=== PATIENT | female | born 1940 | race Two or more races ===

== ENCOUNTER 2025-09-08 12:17 | Emergency (ER) | payer OTHER ==
[~2025-09-08] VITALS: Ht 154.9 cm; Wt 53.5 kg
[2025-09-08] MEDS ORDERED: VASOTEC20 MG PO (12:29)
[2025-09-08] MEDS ORDERED: CARVEDILOL ER40 MG PO (12:29)
[2025-09-08] MEDS ORDERED: AMLODIPINE BESY10 MG PO (12:29)
[2025-09-08] MEDS ORDERED: LIPITOR40 M1 PO (12:30)
[2025-09-08] MEDS ORDERED: BIOTIN5 MG (12:30)
[2025-09-08] MEDS ORDERED: ALPRAZOLAM0.5 M1 PO (12:30)
[2025-09-08] MEDS ORDERED: ALENDRONATE SOD70 MG PO (12:31)
[2025-09-08] MEDS ORDERED: GRALISE600 MG PO (12:32)
[2025-09-08] MEDS ORDERED: ASA81 MG PO (12:32)
[2025-09-08] MEDS ORDERED: FAMOTIDINE/PF 20 MG in 0.9 % SODIUM CHLORIDE 8 ML IV PUSH STA (14:45)
[2025-09-08] MEDS ORDERED: ONDANSETRON HCL 2 MG/ML VIAL IV ONE (14:45)
[2025-09-08] MEDS ORDERED: PANTOPRAZOLE SODIUM 40 MG/VIAL VIAL IV ONE (15:00)
[2025-09-08 16:11] LABS: BASO % 0.2 % (0.1-1.2); EOS # 0.09 (0.04-0.54); EOS % 0.7 % (0.7-7.0); LYMPH # 1.97 (1.18-3.74); LYMPH % 15.1 % (19.3-53.1); MEAN PLATELET VOLUME 11.00 fl (9.4-12.4); MONO # 0.64 (0.24-0.82); MONO % 4.9 % (4.7-12.5); NEUT # 10.32 (1.56-6.13); NEUT % 78.8 % (34.0-71.1); RED CELL DISTRIBUTION WIDTH 12.3 % (11.6-14.4)
[2025-09-08 16:22] LABS: ERYTHROCYTE SEDIMENTATION RATE 53 mm/hr (0-30)
[2025-09-08 16:44] LABS: ALT/SGPT 15.0 U/L (12-78); AST/SGOT 12.0 U/L (15-37); BILIRUBIN TOTAL 0.79 mg/dL (0.3-1.2); BILIRUBIN,CONJUGATED 0.23 mg/dL (0.0-0.2); BUN CREA RATIO 28.0 (7.0-25.0); CREATININE SERUM 0.9 mg/dL (0.55-1.02); GFR 59.51; GLUCOSE FASTING 101.0 mg/dL (65-100); OSMOLALITY SERUM 288.0 MOSM/KG (275-295); PHOSPHOKINASE CREATININE 61.0 U/L (26-192)
[2025-09-08 16:50] LABS: INR 1.02
[2025-09-08 17:35] LABS: URINE APPEARANCE Clear; URINE BILIRRUBIN Negative (NEGATIVE); URINE BLOOD Negative; URINE COLOR Yellow; URINE GLUCOSE Negative (NEGATIVE); URINE KETONE Negative (NEGATIVE); URINE LEUKOCYTE Negative; URINE NITRATE Negative; URINE PROTEIN Negative (NEGATIVE); URINE UROBILINOGEN 0.2 E.U./dl
[2025-09-08 17:39] LABS: URINE BACTERIA 70.9 uL (0.0-1933); URINE CAST 12.89 uL (0.0-1.40); URINE EPITHELIAL CELLS 28.3 uL (0.0-38.8); URINE RBC 2.8 uL (0.0-20.8); URINE WBC 12.2 uL (0.0-23.2)
[2025-09-08 18:17] LABS: URINE MUCUS MODERATE
[2025-09-08 18:18] LABS: TYPE CELLS SQUAMOUS
[2025-09-08] MEDS ORDERED: LEVSIN/SL0.125 MG PO (23:59)
[2025-09-08] MEDS ORDERED: PEPCID AC20 MG PO (23:59)
[2025-09-09] MEDS ORDERED: ZOFRAN8 MG PO (00:01)
[2025-09-09] MEDS ORDERED: CIPRO500 MG PO (00:36)
== END 2025-09-09 00:55 | disposition home or self-care (01) ==
LOC: ER 12:18
PROVIDERS: General Practice
DX: K52.89 Other specified noninfective gastroenteritis and colitis (principal); R10.9 Unspecified abdominal pain; R11.0 Nausea; R07.89 Other chest pain; E03.8 Other specified hypothyroidism; I10 Essential (primary) hypertension; Z91.041 Radiographic dye allergy status
CPT/HCPCS: 36415; 71045; 74177; 93005; 96365; 99284; J2405; J3490 ×2; Q9965